=== PATIENT | female | born 1965 | race African-American/Black ===

== ENCOUNTER 2017-03-11 21:54 | Emergency (ER) | payer OTHER ==
[2017-03-11 21:18] LABS: BASOPHILS 0.4 %; BASOPHILS ABSOLUTE 0.05 10/3/uL (0.0-0.16); EOSINOPHILS 3.2 %; EOSINOPHILS ABSOLUTE 0.39 10/3/uL (0.0-0.53); HEMOGLOBIN 10.2 g/dL (12.0-16.0); IMMATURE GRANULOCYTES 0.3 %; IMMATURE GRANULOCYTES ABSOLUTE 0.04 10/3/uL (0.0-0.11); LYMPHOCYTES ABSOLUTE 2.34 10/3/uL (0.67-4.30); MANUAL DIFF NO %; MEAN CORPUS HGB CONC 31.9 g/dL (32.0-36.0); MEAN CORPUSCULAR HEMOGLOB 25.7 pg (26.0-34.0); MEAN CORPUSCULAR VOLUME 80.6 fL (80-100); MEAN PLATELET VOLUME 8.3 fL (9.2-13.0); MONOCYTES 9.4 %; MONOCYTES ABSOLUTE 1.16 10/3/uL (0.21-1.20); NEUTROPHILS 67.7 %; NEUTROPHILS ABSOLUTE 8.36 10/3/uL (2.02-8.40); PLATELET COUNT 638 10/3/uL (150-400); RBC DISTRIBUTION WIDTH 15.3 % (12.0-16.0); RED CELL COUNT 3.97 10/6/uL (4.0-5.6); WHITE BLOOD CELLS 12.3 10/3/uL (4.5-10.5)
[2017-03-11 21:26] LABS: INTERNATIONAL NORMAL RATI 0.9 UNITS (-); PARTIAL THROMBO TIME 24.6 SEC (22.5-37.2); PROTIME (NOT ORD) 12.4 SEC (12.0-14.5)
[2017-03-11 21:38] LABS: CALCIUM, SERUM 10.5 MG/DL (8.5-10.4); CHLORIDE, SERUM 101 MMOL/L (96-112); CO2 (CARBON DIOXIDE) 30 MMOL/L (24-34); CREATININE 1.71 MG/DL (0.55-1.02); GFR AFRICAN AMERICAN 39 ML/MIN (>=60); GFR NON AFRICAN AMERICAN 34 ML/MIN (>=60); SODIUM, SERUM 140 MMOL/L (135-148)
[2017-03-11 21:40] LABS: BUN (BLOOD UREA NITROGEN) 33 MG/DL (6-23); GLUCOSE, SERUM 186 MG/DL (60-99); POTASSIUM, SERUM 4.9 MMOL/L (3.5-5.3)
[2017-03-11 21:41] LABS: CHEST PAIN PROFILE TAT 0 Hrs 29 Mins; TROPONIN I 0.08 NG/ML (<0.05)
[~2017-03-11 21:54] MED LIST: DIGITEK0.125 MG PO; DSS PO; HALF81 PO; INSNOVR SC; LEVEMIR SC; LIPITOR40 PO; LOP25 PO; LOP50 PO; NICODERM C7 MG/24 HR TOP; PCET PO; PROAMAT5 PO; PROVHFA INH
[2017-03-11] MEDS ORDERED: LIPITOR40 PO (22:19)
[2017-03-11] MEDS ORDERED: PROAIR HFA INH (22:19)
[2017-03-11] MEDS ORDERED: PLAVIX PO (22:19)
[2017-03-11] MEDS ORDERED: HALF81 PO (22:19)
[2017-03-11] MEDS ORDERED: FLORINEF0.1 MG PO (22:20)
[2017-03-11] MEDS ORDERED: DSS PO (22:20)
[2017-03-11] MEDS ORDERED: NEUR100 PO (22:20)
[2017-03-11] MEDS ORDERED: LAN125 PO (22:20)
[2017-03-11] MEDS ORDERED: PRIN2.5 PO (22:21)
[2017-03-11] MEDS ORDERED: HUMALOG SC (22:21)
[2017-03-11] MEDS ORDERED: LEVEMIR SC (22:21)
[2017-03-11] MEDS ORDERED: PROAM25 PO (22:22)
[2017-03-11] MEDS ORDERED: TOPXL25 PO (22:22)
[2017-03-11] MEDS ORDERED: MOMUD PO (22:22)
[2017-03-11] MEDS ORDERED: REG PO (22:22)
[2017-03-11] MEDS ORDERED: PROMEGA PO (22:23)
[2017-03-11] MEDS ORDERED: PCET PO (22:23)
[2017-03-11] MEDS ORDERED: LYRICA75 PO (22:24)
[2017-03-11] MEDS ORDERED: RAN500 PO (22:24)
== END 2017-03-12 00:22 | disposition home or self-care (01) ==
LOC: ER 21:54
PROVIDERS: Emergency Medicine
DX: I95.1 Orthostatic hypotension (principal); E11.9 Type 2 diabetes mellitus without complications; Z87.891 Personal history of nicotine dependence; Z95.1 Presence of aortocoronary bypass graft; Z86.73 Personal history of transient ischemic attack (TIA), and cerebral infarction without residual deficits; Z88.2 Allergy status to sulfonamides; Z79.82 Long term (current) use of aspirin; Z79.4 Long term (current) use of insulin; Z79.891 Long term (current) use of opiate analgesic; Z79.899 Other long term (current) drug therapy
CPT/HCPCS: 80048; 83735; 84484; 85025; 85610; 85730; 93005; 99285